=== PATIENT | male | born 1970 | race Caucasian/White ===

== ENCOUNTER 2017-11-08 07:46 | Day surgery (SDC) | payer BC ==
--- NOTE | 2017-10-19 22:36 | HP ---
DATE OF ADMISSION: 11/08/17 HISTORY OF PRESENT ILLNESS: This 46-year-old male is being scheduled today for arthroscopic surgery of the right knee. The patient has had an injury dating back to 07/08/2017, where he slipped and fell with injury. The pain persisted in the medial aspect of the right knee. He has gone through an MRI evaluation which discloses degenerative tearing of the posterior horn of the medial meniscus. With failed treatment, the patient is now being scheduled for arthroscopic evaluation and treatment of the right knee. ALLERGIES: Shellfish. CURRENT MEDICATIONS: Current medications include Atripla 600/200/300 daily, fish oil, ibuprofen, and multivitamins. PAST MEDICAL HISTORY: The medical problems include HIV, hyperlipidemia, history of kidney stones. PAST SURGICAL HISTORY: Positive, he had previous appendectomy. No anesthesia complications or problem. Bleeding history is negative. Clotting history is negative. SOCIAL HISTORY: Tobacco use, the patient smokes 1 to 2 packs per day x20 years. Alcohol use is social. PHYSICAL EXAMINATION: GENERAL: A well-developed, well-nourished 46-year-old male in moderate distress. HEAD, EYES, EARS, NOSE, AND THROAT: Normocephalic. NECK: Supple. CHEST: Clear. COR: Regular rate. ABDOMEN: Soft. : Intact. EXTREMITIES: Examination of the right knee revealed positive pain to direct pressure palpation along the medial joint line area. Stress examination produced increased pain along the medial joint. Marcelo's was positive for pain. Apley's was positive for pain. RADIOGRAPHIC STUDIES: Previous MRI evaluation reveals degenerative changes involving the posterior horn of medial meniscus. ASSESSMENT: Degenerative tearing medial meniscus, posterior horn, right knee. PLAN: The patient to undergo surgical arthroscopic surgery. Procedure has been outlined to him. He understands procedure and has consented to it. MMODAL /[id number] [facility]
[~2017-11-08 07:46] MED LIST: Lactated Ringers 1,000 ML IV SCH; Lidocaine 1%/Sod Bicarbonate in NS 8.4% 1 ML Syringe IDERM PRN; Sodium Chloride 0.9% 10 ML Syringe FLUSH PRN
[2017-11-08] MEDS ORDERED: Ondansetron 4 MG/2 ML SDV ONE (08:41)
[2017-11-08] MEDS ORDERED: Propofol 200 MG/20 ML SDV ONE (08:42)
[2017-11-08] MEDS ORDERED: fentaNYL 250 MCG/5 ML SDV ONE (08:42)
[2017-11-08] MEDS ORDERED: Midazolam 1 MG/ML 2 ML SDV ONE (08:42)
[2017-11-08] MEDS ORDERED: Lidocaine 1% 4 ML ONE (08:43)
[2017-11-08] MEDS ORDERED: EPINEPHrine 1 MG/ML 30 ML MDV ONE (09:11)
--- NOTE | 2017-11-08 09:13 | PCM.PREANE ---
Preanesthetic Assessment - Procedure Proposed Procedure: Right knee arthroscopy - Anesthesia/Transfusion/Family Hx Anesthesia History: Prior Anesthesia Without Reaction Family History of Anesthesia Reaction: Yes Transfusion History: No Prior Transfusion(s) Additional History: HIV - Review of Systems General: No Symptoms Pulmonary: No Symptoms Cardiovascular: Other (hyperlipidemia ) Gastrointestinal: No Symptoms Neurological: No Symptoms Other: Reports: None - Physical Assessment NPO Status Date: 11/07/17 NPO Status Time: 19:30 O2 Sat by Pulse Oximetry: 100 Respiratory Rate: 20 Vital Signs: Last Vital Signs Temp 36.1 C 11/08/17 08:00 Pulse 54 L 11/08/17 08:00 Resp 20 11/08/17 08:00 BP 109/75 11/08/17 08:00 Pulse Ox 100 11/08/17 08:00 Height: 1.73 m Weight: 80.739 kg ASA Class: 2 Mental Status: Alert & Oriented x3 Airway Class: Mallampati = 1 Dentition: Reports: Normal Dentition Thyro-Mental Finger Breadths: 3 Mouth Opening Finger Breadths: 3 ROM/Head Extension: Full Lungs: Clear to Auscultation, Normal Respiratory Effort Cardiovascular: Regular Rate, Regular Rhythm - Lab Values: Laboratory Last Values WBC 6.76 K/mm3 (4.23-9.07) 11/08/17 08:39 RBC 4.80 M/mm3 (4.63-6.08) 11/08/17 08:39 Hgb 16.2 gm/L (13.7-17.5) 11/08/17 08:39 Hct 45.5 % (40.1-51.0) 11/08/17 08:39 MCV 94.8 fl (79.0-92.2) H 11/08/17 08:39 MCH 33.8 pg (25.7-32.2) H 11/08/17 08:39 MCHC 35.6 g/dl (32.2-35.5) H 11/08/17 08:39 RDW Std Deviation 48.8 fL (35.1-43.9) H 11/08/17 08:39 Plt Count 172 K/mm3 (163-337) 11/08/17 08:39 MPV 10.5 fl (9.4-12.3) 11/08/17 08:39 - Allergies Allergies/Adverse Reactions: Allergies Allergy/AdvReac Type Severity Reaction Status Date / Time shellfish derived Allergy Cannot Verified 11/07/17 16:30 Remember - Blood Blood Available: No Product(s) Available: None - Anesthesia Plan Pre-Op Medication Ordered: None - Acknowledgements Anesthesia Type Planned: General Anesthesia (LMA recommended ) Pt an Appropriate Candidate for the Planned Anesthesia: Yes Alternatives and Risks of Anesthesia Discussed w Pt/Guardian: Yes Pt/Guardian Understands and Agrees with Anesthesia Plan: Yes PreAnesthesia Questionnaire HEENT History: Reports: Impaired Vision, Other (See Below) Other HEENT History: wears glasses, contacts Cardiovascular History: Reports: None Respiratory History: Reports: None Genitourinary History: Reports: Renal Calculus HOOP EXPANDER History: Reports: None Musculoskeletal History: Reports: Other (See Below) Other Musculoskeletal History: hamstring contracture, tear of medial meniscus, right acheilles tendon contracture, right ankle pain, quadriceps tightness, right knee pain Neurological History: Reports: None Psychiatric History: Reports: None Endocrine/Metabolic History: Reports: None Hematologic History: Reports: None Immunologic History: Reports: HIV Oncologic (Cancer) History: Reports: None Dermatologic History: Reports: None - Past Surgical History Head Surgeries/Procedures: Reports: None HEENT Surgical History: Reports: None Cardiovascular Surgical History: Reports: None Respiratory Surgical History: Reports: None GI Surgical History: Reports: Appendectomy Female Surgical History: Male Surgical History: Reports: Lithotripsy (ESWL) Endocrine Surgical History: Reports: None Neurological Surgical History: Reports: None Musculoskeletal Surgical History: Reports: None Oncologic Surgical History: Reports: None Dermatological Surgical History: Reports: None - SUBSTANCE USE Smoking Status *Q: Current Every Day Smoker (1.5ppd for 20 years) Second Hand Smoke Exposure: No Days Per Week of Alcohol Use: 2 Number of Drinks Per Day: 2 Total Drinks Per Week: 4 Recreational Drug Use History: No - HOME MEDS Home Medications: Home Meds Efavirenz/Emtricitab/Tenofovir [Atripla Tablet] 1 tab PO DAILY 11/07/17 [History ] Fish Oil/Reno-3 Fatty Acids [Fish Oil 1,000 MG] 1 gm PO DAILY 11/07/17 [History ] Multivitamin [Daily Multiple Vitamin] 1 tab PO DAILY 11/07/17 [History] - CURRENT (IN HOUSE) MEDS Current Meds: Current Medications Lactated Ringer's (Ringers, Lactated) 1,000 mls @ 125 mls/hr IV ASDIRECTED ALBERTO Stop: 11/08/17 23:00 Last Admin: 11/08/17 08:30 Dose: 125 mls/hr Lidocaine/Sodium Bicarbonate (Buffered Lidocaine 1% In Ns 8.4%) 0.25 ml IDERM ONETIME PRN PRN Reason: Prior to IV Start Stop: 11/08/17 18:00 Last Admin: 11/08/17 08:29 Dose: 0.25 ml Sodium Chloride (Saline Flush) 10 ml FLUSH ASDIRECTED PRN PRN Reason: Keep Vein Open Stop: 11/08/17 18:00 Discontinued Medications Fentanyl (Sublimaze) Confirm Administered Dose 250 mcg .ROUTE .STK-MED ONE Stop: 11/08/17 08:43 Lidocaine HCl (Xylocaine-Mpf 1%) Confirm Administered Dose 4 mls @ as directed .ROUTE .STK-MED ONE Stop: 11/08/17 08:44 Midazolam HCl (Versed 1 Mg/Ml) Confirm Administered Dose 2 mg .ROUTE .STK-MED ONE Stop: 11/08/17 08:43 Ondansetron HCl (Zofran) Confirm Administered Dose 4 mg .ROUTE .STK-MED ONE Stop: 11/08/17 08:42 Propofol (Diprivan 20 Ml) Confirm Administered Dose 200 mg .ROUTE .STK-MED ONE Stop: 11/08/17 08:43
[2017-11-08] MEDS ORDERED: Sodium Chloride 0.9% 50 ML SDV ONE (09:14)
[2017-11-08] MEDS ORDERED: Acetaminophen/oxyCODONE 325-5 MG Tab PO PRN (09:17)
[2017-11-08] MEDS ORDERED: Ketorolac 30 MG/ML SDV IVPUSH PRN (09:17)
[2017-11-08] MEDS ORDERED: Cyclobenzaprine 10 MG Tab PO PRN (09:17)
[2017-11-08] MEDS ORDERED: Ondansetron 4 MG/2 ML SDV IVPUSH PRN (09:17)
[2017-11-08] MEDS ORDERED: ceFAZolin 1 GM Vial ONE (09:26)
[2017-11-08] MEDS ORDERED: Morphine 15 MG Tab.ER PO SCH (09:30)
[2017-11-08] MEDS: Bupivacaine 0.5%/EPINEPHrine 1:200,000 50 ML MDV ONE ×2 (10:29→11:10)
[2017-11-08] MEDS ORDERED: HYDROmorphone 0.5 MG/0.5 ML Syringe ONE ×2 (10:30)
[2017-11-08] MEDS ORDERED: Lactated Ringers 1,000 ML ONE (10:32)
[2017-11-08] MEDS ORDERED: Ketorolac 30 MG/ML SDV ONE (11:11)
[2017-11-08] MEDS ORDERED: HYDROmorphone 0.5 MG/0.5 ML Syringe IVPUSH PRN (11:27)
[2017-11-08] MEDS ORDERED: fentaNYL 100 MCG/2 ML SDV IVPUSH PRN (11:27)
--- NOTE | 2017-11-08 11:28 | PCM.POSTAN ---
POST ANESTHESIA ASSESSMENT - MENTAL STATUS Mental Status: Alert, Oriented - VITAL SIGNS Pulse Rate: 12 SaO2: 97 Resp Rate: 12 Blood Pressure: 121/74 Temperature: 36.8 C - RESPIRATORY Respiratory Status: Respiratory Rate WNL, Airway Patent, O2 Saturation Stable, Supplemental Oxygen - CARDIOVASCULAR CV Status: Pulse Rate WNL, Blood Pressure Stable - GASTROINTESTINAL GI Status: No Symptoms - PAIN Pain Score: 0 - POST OP HYDRATION Hydration Status: Adequate & Stable - OBSERVATIONS Free Text/Narrative:: no anesthesia complications noted
--- NOTE | 2017-11-08 13:46 | PCM48HPAN ---
Post Anesthesia Note - EVALUATION WITHIN 48HRS OF ANESTHETIC Vital Signs in Normal Range: Yes Patient Participated in Evaluation: Yes Respiratory Function Stable: Yes Airway Patent: Yes Cardiovascular Function Stable: Yes Hydration Status Stable: Yes Pain Control Satisfactory: Yes Nausea and Vomiting Control Satisfactory: Yes Mental Status Recovered: Yes Pulse Rate: 12 Resp Rate: 16 Temperature: 36.8 C Blood Pressure: 121/74
--- NOTE | 2017-11-08 13:59 | OR ---
DATE OF OPERATION: 11/08/2017 SURGEON: Aniceto Ann MD PREOPERATIVE DIAGNOSIS: 1. Right knee internal derangement. 2. Tear of medial meniscus. POSTOPERATIVE DIAGNOSIS: 1. Right knee fibrous adhesions, torn ligamentum mucosum, right knee. 2. Tear of posterior horn, medial meniscus, right knee. 3. Ihjeelyr-bf-ertumo osteochondrosis, medial femoral condyle, right knee. ANESTHESIA: General. OPERATION PERFORMED: 1. Arthroscopic debridement, removal of fibrous adhesions, torn ligamentum mucosum, right knee. 2. Arthroscopic partial medial meniscectomy, right knee. 3. Arthroscopic osteochondroplasty, medial femoral condyle, right knee. DESCRIPTION OF PROCEDURE: The patient was taken to the operative room in a supine position, placed under a general anesthesia. The right knee was prepped and draped by standard technique and after prepping and draping, the operation proceeded with 2 portals of entry being used, medial and lateral. The arthroscope was introduced in the lateral portal for examination of the medial compartment and with stressing of the medial compartment, this could be evaluated. Initial evaluation found significant fragmentation of the medial femoral condyle, extending all the way back to the central area of the medial meniscus and over the medial meniscus. Chondroplasty was initially carried out. There was bone exposed over the medial meniscus area and an osteochondroplasty of the bleeding bone was carried off in that area. The size of this area was approximately 1 cm. The rest of the cartilage was firmly attached, even though it was roughened as a result of the chondrosis that was present. Once that was completed, the medial meniscus was inspected, it was found to be very soft and flattened out on the posterior horn area. Initial trimming out found a cystic lesion within the interior of the meniscus. This was removed along and the meniscus was continued to be trimmed out to a nice smooth contour. The medial compartment was intact. Slight chondrosis changes were noted. At the central area, the anterior cruciate ligament was intact. The fibrous adhesions along with the torn ligamentum mucosum had been removed. Lateral compartment of the lateral meniscus was found to be intact from the posterior horn anteriorly. It was probed. The condylar surfaces of lateral femoral condyle, medial, and lateral tibial plateau were intact. The arthroscope was then swung up into the suprapatellar area, the patella was central, no chondromalacia was noted. There was significant synovitis of the suprapatellar region. Light debridement was carried out on some fibrous adhesions that were present. Operation then proceeded with final inspection of the compartments. The medial compartment was reinspected. The meniscus was probed after the trimming and found to be intact other than the surgical changes. The medial femoral condyle showed good bleeding bone and exposed area of the bone that had an osteochondroplasty performed. The operation then proceeded with final irrigation of the joint area. The wounds were then closed after thorough irrigation with 3-0 Prolene. Hooks dressing was applied. Patient tolerated the procedure well, left the operating room in stable condition to room for recovery. ESTIMATED BLOOD LOSS: MMODAL /[id number]
== END 2017-11-08 13:15 | disposition home or self-care (01) ==
LOC: JD.SDS 07:46
PROVIDERS: ATTEND Specialist
DX: M23.221 Derangement of posterior horn of medial meniscus due to old tear or injury, right knee (principal); M23.91 Unspecified internal derangement of right knee; M93.961 Osteochondropathy, unspecified, right lower leg; M65.861 Other synovitis and tenosynovitis, right lower leg; Z21 Asymptomatic human immunodeficiency virus [HIV] infection status; F17.210 Nicotine dependence, cigarettes, uncomplicated; E78.2 Mixed hyperlipidemia; Z91.013 Allergy to seafood; Z79.899 Other long term (current) drug therapy
CPT/HCPCS: 29881; 36415; 80053; 85007; 85027; A9270; J0171; J0690; J1170; J1885; J2250; J2405; J2704; J3010; J3490; J7120; J2001

== ENCOUNTER 2022-07-05 10:10 | Day surgery (SDC) | payer BC ==
[~2022-07-05 10:10] MED LIST changes: +Acetaminophen 325 MG Tab PO SCH; +Morphine 8 MG, EPINEPHrine 0.3 MG, Cefuroxime 750 MG, Ketorolac 30 MG, Sodium Chloride ... PRN; +Pregabalin 25 MG Cap PO SCH; +Sodium Chloride 0.9% 10 ML Syringe FLUSH SCH; +oxyCODONE ER 10 MG TAB.ER PO SCH
[2022-07-05] MEDS ORDERED: fentaNYL 100 MCG/2 ML SDV ONE (10:15)
[2022-07-05] MEDS ORDERED: ceFAZolin 2 GM Vial ONE (10:15)
[2022-07-05] MEDS ORDERED: Propofol 200 MG/20 ML SDV ONE ×2 (10:15→12:16)
[2022-07-05] MEDS ORDERED: Midazolam 1 MG/ML 2 ML SDV ONE ×2 (10:15→11:31)
[2022-07-05] MEDS ORDERED: Lidocaine 1% 2 ML ONE (10:15)
[2022-07-05] MEDS ORDERED: Vancomycin 1 GM SDV ONE (10:18)
[2022-07-05] MEDS ORDERED: Tranexamic Acid 1,000 MG/10 ML Vial ONE (10:18)
[2022-07-05] MEDS ORDERED: fentaNYL 100 MCG/2 ML SDV IVPUSH PRN (10:30)
[2022-07-05] MEDS ORDERED: HYDROmorphone 0.5 MG/0.5 ML Syringe IVPUSH PRN (10:30)
[2022-07-05] MEDS ORDERED: Ondansetron 4 MG/2 ML SDV IVPUSH PRN (10:30)
[2022-07-05] MEDS ORDERED: EPINEPHrine 1 MG/ML SDV ONE (10:34)
[2022-07-05] MEDS ORDERED: Ropivacaine 0.5% 5 MG/ML 30 ML SDV ONE (10:35)
[2022-07-05] MEDS ORDERED: ePHEDrine 50 MG/ML SDV ONE (11:30)
[2022-07-05] MEDS ORDERED: oxyCODONE 5 MG Tab PO PRN (13:33)
== END 2022-07-05 15:40 | disposition home or self-care (01) ==
LOC: JD.SDS 10:10
PROVIDERS: ATTEND Orthopaedic Surgery
DX: M17.11 Unilateral primary osteoarthritis, right knee (principal); M94.261 Chondromalacia, right knee; U07.1 COVID-19; G89.29 Other chronic pain; M25.50 Pain in unspecified joint; E78.2 Mixed hyperlipidemia; R63.4 Abnormal weight loss; M05.9 Rheumatoid arthritis with rheumatoid factor, unspecified; F17.210 Nicotine dependence, cigarettes, uncomplicated; Z68.25 Body mass index [BMI] 25.0-25.9, adult; Z91.013 Allergy to seafood; Z79.899 Other long term (current) drug therapy; Z98.890 Other specified postprocedural states; Z21 Asymptomatic human immunodeficiency virus [HIV] infection status
CPT/HCPCS: 0055T; 27447; 64447; 73560; 97116; 97161; A9270; C1713; C1776; J0171; J0690; J0697; J1885; J2250; J2270; J2704; J2795; J3010; J3370; J7120; 01402; J3490

== ENCOUNTER 2022-10-19 07:28 | Day surgery (SDC) | payer BC ==
[~2022-10-19 07:28] MED LIST changes: -Acetaminophen 325 MG Tab PO SCH; -Lidocaine 1%/Sod Bicarbonate in NS 8.4% 1 ML Syringe IDERM PRN; +Midazolam 1 MG/ML 2 ML SDV ONE; -Morphine 8 MG, EPINEPHrine 0.3 MG, Cefuroxime 750 MG, Ketorolac 30 MG, Sodium Chloride ... PRN; -Pregabalin 25 MG Cap PO SCH; +Propofol 200 MG/20 ML SDV ONE; +fentaNYL 100 MCG/2 ML SDV ONE; -oxyCODONE ER 10 MG TAB.ER PO SCH
[2022-10-19] MEDS ORDERED: Dexamethasone 4 MG/ML SDV ONE (08:39)
[2022-10-19] MEDS ORDERED: Ondansetron 4 MG/2 ML SDV IVPUSH PRN (09:07)
[2022-10-19] MEDS ORDERED: HYDROmorphone 0.5 MG/0.5 ML Syringe IVPUSH PRN (09:07)
[2022-10-19] MEDS ORDERED: Lactated Ringers 1,000 ML ONE (09:09)
== END 2022-10-19 11:15 | disposition home or self-care (01) ==
LOC: JD.SDS 07:28
PROVIDERS: ATTEND Surgery
DX: K29.51 Unspecified chronic gastritis with bleeding (principal); K25.4 Chronic or unspecified gastric ulcer with hemorrhage; D64.9 Anemia, unspecified; Q43.8 Other specified congenital malformations of intestine; K44.9 Diaphragmatic hernia without obstruction or gangrene; R63.4 Abnormal weight loss; K64.8 Other hemorrhoids; G89.29 Other chronic pain; M25.50 Pain in unspecified joint; E78.2 Mixed hyperlipidemia; M05.9 Rheumatoid arthritis with rheumatoid factor, unspecified; F17.210 Nicotine dependence, cigarettes, uncomplicated; Z79.1 Long term (current) use of non-steroidal anti-inflammatories (NSAID); Z79.899 Other long term (current) drug therapy; Z91.013 Allergy to seafood; Z98.890 Other specified postprocedural states
CPT/HCPCS: 43239; 45378; J1100; J2250; J2704; J3010; J7120; 00813

== ENCOUNTER 2023-09-08 07:40 | Day surgery (SDC) | payer BC ==
[~2023-09-08 07:40] MED LIST changes: -Lactated Ringers 1,000 ML IV SCH; -Midazolam 1 MG/ML 2 ML SDV ONE; -Propofol 200 MG/20 ML SDV ONE; -fentaNYL 100 MCG/2 ML SDV ONE
[2023-09-08] MEDS: Lactated Ringers 1,000 ML IV SCH (08:00)
[2023-09-08] MEDS ORDERED: Lidocaine 1% 4 ML ONE (08:23)
[2023-09-08] MEDS ORDERED: fentaNYL 250 MCG/5 ML SDV ONE (08:23)
[2023-09-08] MEDS ORDERED: Propofol 200 MG/20 ML SDV ONE (08:23)
[2023-09-08] MEDS ORDERED: Midazolam 1 MG/ML 2 ML SDV ONE (08:23)
[2023-09-08] MEDS ORDERED: ceFAZolin 2 GM Vial ONE (09:44)
[2023-09-08] MEDS ORDERED: HYDROmorphone 0.5 MG/0.5 ML Syringe ONE ×2 (09:56→09:57)
[2023-09-08] MEDS: EPINEPHrine 1 MG/ML SDV ONE (09:58)
[2023-09-08] MEDS: Bupivacaine 0.25% 10 ML SDV ONE (09:58)
[2023-09-08] MEDS ORDERED: Ondansetron 4 MG/2 ML SDV ONE (10:04)
[2023-09-08] MEDS ORDERED: Ketorolac 30 MG/ML SDV ONE (10:04)
[2023-09-08] MEDS ORDERED: fentaNYL 100 MCG/2 ML SDV IVPUSH PRN (10:36)
[2023-09-08] MEDS ORDERED: HYDROmorphone 0.5 MG/0.5 ML Syringe IVPUSH PRN (10:36)
[2023-09-08] MEDS: Acetaminophen/HYDROcodone 325-5 MG Tab PO PRN (10:55)
== END 2023-09-08 11:45 | disposition home or self-care (01) ==
LOC: JD.SDS 07:40
PROVIDERS: ATTEND Orthopaedic Surgery
DX: M17.12 Unilateral primary osteoarthritis, left knee (principal); M71.22 Synovial cyst of popliteal space [Baker], left knee; Z21 Asymptomatic human immunodeficiency virus [HIV] infection status; E78.2 Mixed hyperlipidemia; M06.9 Rheumatoid arthritis, unspecified; F17.200 Nicotine dependence, unspecified, uncomplicated; Z79.899 Other long term (current) drug therapy
CPT/HCPCS: 01400; A9270-GY; J0171; J0665; J0690; J1170; J1885; J2250; J2405; J2704; J3010; J3490; J7120

== ENCOUNTER 2025-02-21 08:25 | Day surgery (SDC) | payer BC ==
[~2025-02-21 08:25] MED LIST changes: +Lactated Ringers 1,000 ML IV SCH
[2025-02-21] MEDS: Lactated Ringers 1,000 ML IV SCH (09:20)
[2025-02-21] MEDS ORDERED: Propofol 200 MG/20 ML SDV ONE ×2 (09:43→10:05)
[2025-02-21] MEDS ORDERED: Midazolam 1 MG/ML 2 ML SDV ONE (09:44)
[2025-02-21] MEDS ORDERED: fentaNYL 100 MCG/2 ML SDV ONE (09:44)
[2025-02-21] MEDS: EPINEPHrine 1 MG/ML SDV ONE (11:10)
== END 2025-02-21 12:03 | disposition home or self-care (01) ==
LOC: JD.SDS 08:25
PROVIDERS: ATTEND Surgery
DX: C44.520 Squamous cell carcinoma of anal skin (principal); K62.89 Other specified diseases of anus and rectum; K62.5 Hemorrhage of anus and rectum; F17.210 Nicotine dependence, cigarettes, uncomplicated; Z86.16 Personal history of COVID-19; Z79.899 Other long term (current) drug therapy
CPT/HCPCS: 46606; 46922; J0169; J0665; J2003; J2250; J2704; J3010; J7120; 00902